=== PATIENT | female | born 1970 | race Caucasian/White ===

== ENCOUNTER 2024-11-23 14:44 | Emergency (ER) | payer OTHER ==
[~2024-11-23] VITALS: Ht 162.6 cm; Wt 60.0 kg
[2024-11-23 15:01] VITALS: BP 110/62; PULSE 110; RESP 24; TEMP 98.2; O2SAT 98
[2024-11-23] MEDS: IBUPROFEN 400 MG TABLET PO ONE (16:03)
== END 2024-11-23 16:31 | disposition home or self-care (01) ==
LOC: EMS 14:44
DX: F41.9 Anxiety disorder, unspecified (principal); F15.90 Other stimulant use, unspecified, uncomplicated
CPT/HCPCS: 71045; 99283